=== PATIENT | female | born 1975 | race Caucasian/White ===

== ENCOUNTER 2024-02-23 14:25 | Emergency (ER) | payer BC ==
[~2024-02-23] VITALS: Ht 172.7 cm; Wt 59.0 kg
[2024-02-23] MEDS ORDERED: Ondansetron HCl 2 MG / ML 2ML Vial IV ONE (14:35)
[2024-02-23] MEDS ORDERED: Ketorolac Tromethamine 15mg Vial IV ONE (14:35)
[2024-02-23 15:27] LABS: BASOPHILS ABSOLUTE AUTO 0.04 K/mm3 (0.00-0.23); BASOPHILS PERCENT AUTO 0 % (0-2); EOSINOPHILS ABSOLUTE AUTO 0.03 K/mm3 (0.00-0.68); EOSINOPHILS PERCENT AUTO 0 % (0-6); Hematocrit 38.7 % (33.0-51.0); Hemoglobin 13.2 g/dL (11.5-16.0); IMMATURE GRAN ABSOLUTE AUTO 0.08 K/mm3 (0.00-0.10); IMMATURE GRAN PERCENT AUTO 1 % (0-1); LYMPHOCYTES PERCENT AUTO 8 % (21-46); MONOCYTES ABSOLUTE AUTO 0.52 K/mm3 (0.16-1.47); MONOCYTES PERCENT AUTO 3 % (4-13); Mean Corpuscular HGB 30.9 pg (26.0-34.0); Mean Corpuscular HGB Conc 34.1 g/dL (31.5-36.5); Mean Corpuscular Volume 91 fL (80-100); NEUTROPHILS ABSOLUTE AUTO 13.23 K/mm3 (1.96-9.15); NEUTROPHILS PERCENT AUTO 88 % (41-73); Platelet Count 300 K/mm3 (150-400); RDW Coefficient Variation 12.3 % (11.7-14.2); RDW Standard Deviation 40.6 fL (35.1-46.3); Red Blood Cell Count 4.27 M/mm3 (3.80-5.20)
[2024-02-23 15:58] LABS: Albumin/Globulin Ratio 1.2 (0.8-1.8); Bilirubin, Total 0.5 mg/dL (0.1-1.0); Bun/Creatinine Ratio 21.7 (12.0-20.0); Calcium, Blood 9.4 mg/dL (8.5-10.1); Creatinine, Blood 0.88 mg/dL (0.40-1.00); Globulin, Blood 3.3 g/dL (2.2-4.0); Potassium, Blood 3.9 mmol/L (3.5-5.5); Total Protein, Blood 7.3 g/dL (6.4-8.2)
[2024-02-23] MEDS ORDERED: HYDROmorphone HCl/Pf 1MG SYR IV ONE (17:20)
[2024-02-23] MEDS ORDERED: HYDR1TAB94 PO (17:49)
[2024-02-23] MEDS ORDERED: TAMS.4ER PO (17:49)
== END 2024-02-23 18:02 | disposition home or self-care (01) ==
LOC: ER 14:25
PROVIDERS: Physician Assistant
DX: N13.2 Hydronephrosis with renal and ureteral calculous obstruction (principal); Z87.442 Personal history of urinary calculi; Z59.89 Other problems related to housing and economic circumstances
CPT/HCPCS: 74177; 80053; 84703; 85025; 96374-59; 96375; 99284-25; J1171; J1885; J2405; Q9967

== ENCOUNTER → 2024-03-13 | Outpatient (CLI) | payer BC ==
[~2024-03-13] MED LIST: HYDR1TAB94 PO; TAMS.4ER PO
== END ==
LOC: LAB 09:04 → LAB SHORT 09:04
DX: N39.0 Urinary tract infection, site not specified (principal)
CPT/HCPCS: 87086

== ENCOUNTER → 2024-03-21 | Outpatient (CLI) | payer BC ==
[2024-03-21 15:37] LABS: Source, Urine Clean Catch
[2024-03-21 15:46] LABS: Bacteria Rare /hpf; Squamous Epithelial Cells Rare /hpf (Few); White Blood Cells, Urine 0-2 /hpf (0-5)
== END | disposition home or self-care (01) ==
LOC: LAB SHORT 15:35
PROVIDERS: Internal Medicine
DX: N39.0 Urinary tract infection, site not specified (principal)
CPT/HCPCS: 81015; 87086

== ENCOUNTER → 2024-04-01 | Outpatient (CLI) | payer BC ==
[2024-04-05 07:16] LABS: CALCULI MASS 24 mg
== END ==
LOC: LAB SHORT 21:00 → LAB 21:00
PROVIDERS: Family Medicine
DX: N20.0 Calculus of kidney (principal)
CPT/HCPCS: 82365

== ENCOUNTER 2024-10-28 06:20 | Day surgery (SDC) | payer BC ==
[~2024-10-28] VITALS: Ht 172.7 cm; Wt 66.7 kg
[~2024-10-28 06:20] MED LIST changes: +CONEST.9 PO; +Dexamethasone Sod Phos 10 MG/ML 1ML VIAL ONE; +FentaNYL Citrate 50 MCG/ML 2 ML Injection ONE; +Ketorolac Tromethamine 30mg Vial ONE; +Midazolam HCl 1MG / ML 2ML Vial ONE; +NS 1,000 ML IV ONE; +NURTEC ODT75 MG PO; +Ondansetron HCl 2 MG / ML 2ML Vial ONE; +PROGESTERONE200 M1 PO
[2024-10-28] MEDS ORDERED: CefTRIAXone 1000 MG Vial ONE (06:27)
[2024-10-28] MEDS ORDERED: Lidocaine 2% Jelly Uro-Jet ONE (06:44)
[2024-10-28] MEDS ORDERED: RYBELSUS3 MG PO (06:48)
[2024-10-28] MEDS ORDERED: Citric Acid/Sodium Citrate 30 ML BTL ONE (06:49)
[2024-10-28] MEDS ORDERED: Metoclopramide HCl 5MG / ML 2ML Vial ONE (06:49)
[2024-10-28] MEDS ORDERED: NS 100 ML IV ONE (06:50)
[2024-10-28] MEDS ORDERED: NS 1,000 ML IV ONE (07:55)
--- NOTE | 2024-10-28 08:02 | NUR ---
10/28/24 0802 Zulma Gan N [address] USED DURING PROCEDURE.
--- NOTE | 2024-10-28 09:23 | NUR ---
10/28/[address] AT BEDSIDE
[2024-10-28] MEDS ORDERED: FentaNYL Citrate 50 MCG/ML 2 ML Injection ONE ×2 (09:30→10:06)
--- NOTE | 2024-10-28 09:51 | NUR ---
10/28/24 0951 Angélica Jc HANDOFF GIVEN TO CANDICE GALLOWAY
[2024-10-28] MEDS ORDERED: HYDROcodone 5-APAP 325 TAB ONE (10:45)
== END 2024-10-28 11:03 | disposition home or self-care (01) ==
LOC: ORSCSDS 06:20
PROVIDERS: Urology
PROC: 0T788DZ Dilation of Bilateral Ureters with Intraluminal Device, Via Natural or Artificial Opening Endoscopic (ICD-10-PCS; principal; 2024-10-28 07:30)
PROC: 0TC78ZZ Extirpation of Matter from Left Ureter, Via Natural or Artificial Opening Endoscopic (ICD-10-PCS; principal; 2024-10-28 07:30)
PROC: 0TC68ZZ Extirpation of Matter from Right Ureter, Via Natural or Artificial Opening Endoscopic (ICD-10-PCS; principal; 2024-10-28 07:30)
DX: N20.0 Calculus of kidney (principal); Z79.899 Other long term (current) drug therapy
CPT/HCPCS: A9270; C1758; C1769; C2617; J0696; J1100; J1885; J2250; J2405; J2704; J2765; J3010; J7030